=== PATIENT | female | born 1970 | race Caucasian/White ===

== ENCOUNTER 2023-04-08 11:59 | Emergency (ER) | payer MEDICAID ==
[~2023-04-08] VITALS: Ht 152.4 cm; Wt 69.4 kg
[2023-04-08 12:01] VITALS: BP 158/88; PULSE 64; RESP 18; TEMP 97.9; O2SAT 98
[2023-04-08] MEDS ORDERED: FAMOTIDINE 20 MG/2 ML VIAL IVP ONE (12:25)
[2023-04-08] MEDS ORDERED: diphenhydrAMINE 50 MG/ML VIAL IVP ONE (12:25)
[2023-04-08] MEDS ORDERED: methylPREDNISolone SS 125 MG/2 ML VIAL IVP ONE (12:25)
[2023-04-08] MEDS ORDERED: FAMO-90 PO (13:22)
[2023-04-08] MEDS ORDERED: BEN50 PO (13:22)
[2023-04-08] MEDS ORDERED: PRED20TA5 PO (13:22)
[2023-04-08 14:15] VITALS: BP 118/73; PULSE 80; RESP 16; TEMP 98; O2SAT 99
== END 2023-04-08 14:16 | disposition home or self-care (01) ==
LOC: MED 11:59
DX: L29.9 Pruritus, unspecified (principal); T78.49XA Other allergy, initial encounter; X58.XXXA Exposure to other specified factors, initial encounter
CPT/HCPCS: 96374; 96375; 99284; J1200; J2930; J3490